=== PATIENT | male | born 1975 | race Caucasian/White ===

== ENCOUNTER 2020-06-02 18:07 | Emergency (ER) | payer OTHER, SELFPAY ==
[~2020-06-02] VITALS: Ht 175.3 cm; Wt 112.5 kg
[2020-06-02 18:35] VITALS: BP 157/99; Ht 175.3 cm; Wt 112.5 kg
== END 2020-06-02 19:39 | disposition home or self-care (01) ==
LOC: ED 18:07
DX: U07.1 COVID-19 (principal)
CPT/HCPCS: U0003